=== PATIENT | male | born 1965 | race Two or more races ===

== ENCOUNTER → 2023-04-01 | Outpatient (CLI) | payer BC ==
--- NOTE | 2023-04-01 16:50 | XR ---
EXAMINATION TYPE: XR foot complete LT DATE OF EXAM: 04/01/2023 2:58 PM INDICATION: Patient age:Male; 57 years old; Reason for study: M79.672 L FOOT PAIN; PHH. COMPARISON: None TECHNIQUE: The left foot was examined in the AP, oblique, and lateral projections. FINDINGS: No evidence of any acute osseous pathology. No osseous erosions. No evidence of soft tissue swelling. Joints are preserved. Small plantar calcaneal enthesophyte. Tiny posterior calcaneal enthesophyte. P rominent dorsal midfoot osteophytosis. IMPRESSION: No evidence of acute fracture.
[2023-04-01 19:53] LABS: Uric Acid 6.9 mg/dL (3.7-8.7)
[2023-04-01 23:36] LABS: ALT 46 U/L (10-49); AST 15 U/L (14-35); Albumin 4.1 d/dL (3.8-4.9); Albumin/Globulin Ratio 1.95 Ratio (1.60-3.17); Alkaline Phosphatase 116 U/L (41-126); BUN/Creat Ratio 24.86 Ratio (12.00-20.00); Blood Urea Nitrogen 17.4 mg/dL (9.0-27.0); Calcium 9.5 mg/dL (8.7-10.3); Carbon Dioxide 20.2 mmol/L (21.6-31.8); Chloride 102 mmol/L (96-109); Globulin 2.1 d/dL (1.6-3.3); Glucose 134 mg/dL (70-110); Potassium 4.1 mmol/L (3.5-5.5); Sodium 138 mmol/L (135-145); Total Bilirubin <0.2 mg/dL (0.3-1.2); Total Protein 6.2 d/dL (6.2-8.2)
[2023-04-02 04:13] LABS: Microalbumin Creatinine Ratio <27 mg/g Cr (0-30); Urine Creatinine 43.8 mg/dL (39.0-259.0)
== END | disposition home or self-care (01) ==
LOC: LABWHC1 14:33
PROVIDERS: ATTEND Internal Medicine
DX: M79.672 Pain in left foot (principal); E11.9 Type 2 diabetes mellitus without complications
CPT/HCPCS: 36415; 80053; 82043; 82570; 83036; 84550

== ENCOUNTER → 2024-01-13 | Outpatient (CLI) | payer BC ==
[2024-01-13 11:07] LABS: Basophils # (A) 0.04 X 10*3/uL (0.00-0.10); Basophils % (A) 0.6 %; Eosinophils # (A) 0.38 X 10*3/uL (0.04-0.35); Eosinophils % (A) 5.7 %; HCT 42.9 % (39.6-50.0); HGB 14.5 g/dL (13.0-17.0); Lymphocytes # (A) 1.89 X 10*3/uL (0.90-5.00); Lymphocytes % (A) 28.2 %; MCHC 33.8 g/dL (32.0-37.0); MCV 88.8 FL (80.0-97.0); Mean Platelet Volume 10.3 FL (9.5-12.2); Monocytes % (A) 7.5 %; NRBC Per 100 WBC 0 X 10*3/uL (0.00-0.01); Neutrophils # (A) 3.86 X 10*3/uL (1.80-7.70); Neutrophils % (A) 57.6 %; Platelet Count 236 X 10*3/uL (140-440); RBC 4.83 X 10*6/uL (4.40-5.60); RDW 12.3 % (11.5-14.5)
[2024-01-13 11:36] LABS: Microalbumin Creatinine Ratio <19 mg/g Cr (0-30); Urine Creatinine 61.9 mg/dL (39.0-259.0)
[2024-01-13 11:44] LABS: % Iron Saturation 33.17 (15.00-50.00); BUN/Creat Ratio 18.88 Ratio (12.00-20.00); Blood Urea Nitrogen 15.1 mg/dL (9.0-27.0); Chloride 105 mmol/L (96-109); Chol/HDL Ratio 5.41 Ratio; Glucose 154 mg/dL (70-110); Iron 135 UG/DL (65-175); LDL Cholesterol,Calculated 55.6 mg/dL (0.0-131.0); Magnesium 1.8 mg/dL (1.5-2.4); Potassium 4.8 mmol/L (3.5-5.5); Sodium 139 mmol/L (135-145); Total Iron Binding Capacity 407 UG/DL (228-460)
[2024-01-13 11:45] LABS: ALT 40 U/L (10-49); AST 20 U/L (14-35); Albumin 4.4 g/dL (3.8-4.9); Alkaline Phosphatase 121 U/L (41-126); Calcium 9.7 mg/dL (8.7-10.3); Carbon Dioxide 24.3 mmol/L (21.6-31.8); Globulin 2.2 g/dL (1.6-3.3); PSA Annual Screen 0.817 ng/mL (0.000-4.000); Total Bilirubin 0.3 mg/dL (0.3-1.2); Total Protein 6.6 g/dL (6.2-8.2)
== END | disposition home or self-care (01) ==
LOC: LABWHC1 07:12
PROVIDERS: ATTEND Internal Medicine
DX: Z00.00 Encounter for general adult medical examination without abnormal findings (principal); Z12.5 Encounter for screening for malignant neoplasm of prostate; I10 Essential (primary) hypertension; E11.9 Type 2 diabetes mellitus without complications; Z86.2 Personal history of diseases of the blood and blood-forming organs and certain disorders involving the immune mechanism
CPT/HCPCS: 80061; 80053; 84443; 82607; 82728; 82746; 83540; 83550; 83735; 85025; 82043; 82570; 83036; 36415; G0103

== ENCOUNTER → 2024-01-20 | Outpatient (CLI) | payer BC ==
--- NOTE | 2024-01-20 17:43 | CA ---
Transthoracic Echo Report Name: Andrew Reddy Age: 58 Gender: M : 1965 Exam Date: 01/20/2024 14:46 Exam Location: [place] [facility] Ht (in): 25.2 Wt (lb): 346 Ordering Physician: Ja Fagan DO Attending/Referring Phys: Ja Fagan DO Buyer Agent Roosevelt Adamson RDCS Procedure CPT: Indications: R01.1 CARDIAC MURMUR, UNSPECIFIED Cardiac Hx: Technical Quality: Contrast 1: Total Dose (mL): Contrast 2: Total Dose (mL): MEASUREMENTS (Male / Female) Normal Values 2D ECHO LV Diastolic Diameter PLAX 4.2 cm 4.2 - 5.9 / 3.9 - 5.3 cm LV Systolic Diameter PLAX 3.0 cm IVS Diastolic Thickness 1.0 cm 0.6 - 1.0 / 0.6 - 0.9 cm LVPW Diastolic Thickness 0.7 cm 0.6 - 1.0 / 0.6 - 0.9 cm LV Relative Wall Thickness 0.4 LVOT Diameter 2.3 cm DOPPLER AV Peak Velocity 164.6 cm/s AV Peak Gradient 10.8 mmHg AV Mean Velocity 104.8 cm/s AV Mean Gradient 5.0 mmHg AV Velocity Time Integral 37.2 cm LVOT Peak Velocity 160.5 cm/s LVOT Peak Gradient 10.3 mmHg LVOT Velocity Time Integral 40.4 cm LVOT Stroke Volume 161.1 cm??? LVOT Stroke Volume Index 128.2 ml/m??? LVOT Cardiac Index 4461.4 cm???/min???m??? AV Area Cont Eq vti 4.3 cm??? AV Area Cont Eq pk 3.9 cm??? Mitral E Point Velocity 87.5 cm/s Mitral A Point Velocity 86.4 cm/s Mitral E to A Ratio 1.0 MV Deceleration Time 217.1 ms MV E' Velocity 14.4 cm/s Mitral E to MV E' Ratio 6.1 TR Peak Velocity 290.5 cm/s TR Peak Gradient 33.8 mmHg PV Peak Velocity 88.8 cm/s PV Peak Gradient 3.2 mmHg FINDINGS Left Ventricle Normal Left ventricular size, wall thickness, systolic function with no obvious regional wall motion abnormalities. Normal Left ventricular diastolic filling pattern. Left ventricular ejection fraction is estimated at 55-60%. Right Ventricle Normal right ventricular size and function. Right Atrium Normal right atrial size. Left Atrium Normal left atrial size. Mitral Valve Mild mitral regurgitation. Aortic Valve No aortic valve stenosis or regurgitation. Tricuspid Valve Mild tricuspid regurgitation. Pulmonic Valve No pulmonic regurgitation. Pericardium No pericardial effusion. Aorta Normal size aortic root and proximal ascending aorta. CONCLUSIONS Left ventricular EF 55-60% Mild mitral regurgitation Mild tricuspid regurgitation No pericardial effusion Previewed by: Dr. Rafa Pickard DO (Electronically Signed) Final Date: 20 January 2024 17:42
== END | disposition home or self-care (01) ==
LOC: RADECHMAIN 14:40
PROVIDERS: ATTEND Internal Medicine
DX: I34.0 Nonrheumatic mitral (valve) insufficiency (principal); I36.1 Nonrheumatic tricuspid (valve) insufficiency; R01.1 Cardiac murmur, unspecified
CPT/HCPCS: 93306

== ENCOUNTER → 2024-10-09 | Outpatient (CLI) | payer BC ==
[2024-10-09 11:02] LABS: Basophils # (A) 0.03 X 10*3/uL (0.00-0.10); Basophils % (A) 0.3 %; Eosinophils # (A) 0.17 X 10*3/uL (0.04-0.35); Eosinophils % (A) 1.9 %; HGB 15.2 g/dL (13.0-17.0); Lymphocytes # (A) 2.29 X 10*3/uL (0.90-5.00); Lymphocytes % (A) 25.6 %; MCHC 33.8 g/dL (32.0-37.0); MCV 85.7 FL (80.0-97.0); Mean Platelet Volume 9.8 FL (9.5-12.2); Monocytes # (A) 0.88 X 10*3/uL (0.20-1.00); Monocytes % (A) 9.8 %; NRBC Per 100 WBC 0 X 10*3/uL (0.00-0.01); Neutrophils # (A) 5.55 X 10*3/uL (1.80-7.70); Platelet Count 355 X 10*3/uL (140-440); RBC 5.25 X 10*6/uL (4.40-5.60); WBC 8.96 X 10*3/uL (4.50-10.00)
[2024-10-09 11:20] LABS: Chol/HDL Ratio 4.72 Ratio
[2024-10-09 11:21] LABS: % Iron Saturation 22.55 (15.00-50.00); ALT 26 U/L (10-49); AST 11 U/L (14-35); Albumin 4.6 g/dL (3.8-4.9); Albumin/Globulin Ratio 2.09 Ratio (1.60-3.17); Alkaline Phosphatase 119 U/L (41-126); BUN/Creat Ratio 17.38 Ratio (12.00-20.00); Blood Urea Nitrogen 13.9 mg/dL (9.0-27.0); Calcium 9.8 mg/dL (8.7-10.3); Carbon Dioxide 22.9 mmol/L (21.6-31.8); Chloride 98 mmol/L (96-109); Ferritin 32.5 ng/mL (22.0-322.0); Globulin 2.2 g/dL (1.6-3.3); Glucose 161 mg/dL (70-110); Iron 108 UG/DL (65-175); LDL Cholesterol,Calculated 59.7 mg/dL (0.0-131.0); Potassium 5.1 mmol/L (3.5-5.5); Sodium 131 mmol/L (135-145); Total Bilirubin 0.4 mg/dL (0.3-1.2); Total Iron Binding Capacity 479 UG/DL (228-460); Total Protein 6.8 g/dL (6.2-8.2)
== END | disposition home or self-care (01) ==
LOC: LABWHC1 06:59
PROVIDERS: ATTEND Internal Medicine
DX: Z86.2 Personal history of diseases of the blood and blood-forming organs and certain disorders involving the immune mechanism (principal); I16.0 Hypertensive urgency; E11.9 Type 2 diabetes mellitus without complications; E78.5 Hyperlipidemia, unspecified
CPT/HCPCS: 36415; 80053; 80061; 82607; 82728; 82746; 83036; 83540; 83550; 84443; 85025